=== PATIENT | female | born 1995 | race Caucasian/White ===

== ENCOUNTER 2025-07-02 20:17 | Emergency (ER) | payer MEDICARE, SELFPAY ==
--- OUTSIDE RECORDS SUMMARY | 2024-04-18 06:00 | XMS_ITS ---
Author Organization [facility] Address [address], [place] [id number] Care Team Providers Care Harp Repairer Name Role Phone JEANINE DUBOIS Primary Care Provider Allergies No Known Allergies REASON FOR VISIT Annual Social History Tobacco Use: Social History Observation Description Date Details (start date - stop date) Former Smoker NA - NA Tobacco Use: Question Answer Notes Are you a: former smoker How long has it been since you last smoked? 6-12 months Alcohol Screening: Question Answer Notes Did you have a drink contain ing alcohol in the past year? Yes How often did you have a dri nk containing alcohol in the past year? Monthly or less (1 point) How many drinks did you have on a typical day when you were drinking in the past year? 1 or 2 (0 points) Points 1 Interpretation Negative Section Notes: rare alcohol Encounters Encounter Location Date Provider Diagnosis [facility] [address], [place] [phone] 04/18/2024 JEANINE DUBOIS Plan Of Treatment Next Appt Details Provider Name:JEANINE Lynn, 10/23/2025 09:20:00 AM, [address], [place], [phone], Progress Notes * Demetrio RUEDAOB:1995 (29 yo F)Acc No.[id number]:04/18/2024 Progress Notes Patient: Kayla DELUCA Provider: Leah Dubois MD :1995 A ge:28 Y S ex:Female Date:04/18/2024 Address:[address] [place] [address] [place] [id number] Subjective: * Chief Complaints: * 1 . Annual. * Medical History: Agustina rosenberg's health exam discussed 07-15-21. * Surgical History: u reteral implantation 2011. * Family History: F ather: alive, whereabouts unknown. M other: alive, complications of Parkinson disease.?1 brother(s) , 2 sister(s) . . she is adopted. * Social History: G eneral: T obacco Use: no A re you a: f ormer smoker, H ow long has it been since you last smoked? 6 -12 months. A lcohol Screening: yes D id you have a drink containing alcohol in the past year? Y es, H ow often did you have a drink containing alcohol in the past year??Monthly or less (1 point), H ow many drinks did you have on a typical day when you were drinking in the past year? 1 or 2 (0 points), P oints 1 , I nterpretation N egative. P ain Management: yes Marina stone able to verbalize pain Y es. O pioid Risk Tool: yes A ssessment is being completed by Marina stone, S ex F emale, A re you No, F amily history of substance abuse N o, P ersonal history of substance abuse N o, A ge between 16-45 years N o - 0 points, H istory of preadolescent sexual abuse?No - 0 points, P sychological disease Y es, A DD, OCD, bipolar, schizophrenia Y es - 2 points Has no issues now with them, D epression Y es - 1 point Has some depression,?Interpretation 0 -3 Low risk. P ort or Vascular Access Device: no . D rug use: no. Recreational drug use: no. Caffeine: yes, frequency:. Marital Status: single, Camacho Paula significant other. 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 r are alcohol. * Allergies: N .K.D.A. Objective: * Vitals: Assessment: Plan: * Treatment: * Images: * Electronic signature of EFREN DUBOIS MD on 07/02/2025 at 08:00 PM CDT Sign off status: Pending * Provider: Leah Dubois MD Date: 0 04/18/2024 Generated for Eloy denney/Beto/eTransmitting on: 1 08:00 PM CDT
--- OUTSIDE RECORDS SUMMARY | 2025-02-22 11:00 | XMS_ITS ---
Author Organization [facility] Address [address], [place] [id number] Care Team Providers Care Historian Research Assistant Name Role Phone JEANINE DUBOIS Primary Care Provider [phone] Allergies Allergen (clinical drug ingredient) Drug/Non Drug Allergy documented on EMR Reaction Allergy Type Onset Date Status K5 Store Administrator and Solution (uncoded) hives Allergy Active REASON FOR VISIT severe sciatic pain mainly Rt side, pt says pain starts in lower back to upper calf recurrent for about 7 months Medications Medication SIG (Take, Route, Fr equency, Duration) Notes Start Date End Date Status predniSONE 10 mg 4 tabs for 3 days, t hen 3 tabs for 3 days, then 2 tabs for 3 days, then 1 tab for 3 days, then stop orally once a day for 12 days 12/16/2023 Not-Taking Social History Tobacco Use: Social History Observation Description Date Details (start date - stop date) Former Smoker NA - NA Tobacco Use: Question Answer Notes Are you a: former smoker How long has it been since you last smoked? 6-12 months AUDIT-C (Standard) Question Answer Notes Did you have a drink contain ing alcohol in the past year? Yes How often did you have a dri nk containing alcohol in the past year? Monthly or less (1 point) How many drinks did you have on a typical day when you were drinking in the past year? 1 or 2 drinks (0 point) How often did you have six o r more drinks on one occasion in the past year? Never (0 point) Points 1 Interpretation Negative Section Notes: rare alcohol Problems Problem Type SNOMED Code ICD Code Onset Dates Problem Status W/U Status Risk Notes Problem [id number] Sciatica, unspecified laterality (M54.30) Active confirmed Vital Signs Weight 220.6 lbs 02/22/2025 Height 66 in 02/22/2025 Blood pressure systolic 124 mm Hg 02/23/20 25 Blood pressure diastolic 80 mm Hg 025 Temperature 96.6 degrees Fahrenheit 02/23/20 25 Heart Rate 75 /min 02/22/2025 Respiratory Rate 18 /min 02/22/2025 BMI 35.6 kg/m2 02/22/2025 Oximetry 96 02/22/2025 Encounters Encounter Location Date Provider Diagnosis [facility] [address], [place] [phone] 02/22/2025 JEANINE DUBOIS Low back pain, unspecified M54.50 and Sciatica, unspecified laterality M54.30 Assessments Encounter Date Diagnosis (ICD Code) Assessment Notes Treatment Notes Treatment Clinical Notes Section Notes 02/22/2025 Low back pain, unspecified (ICD-10 - M54.50) 02/22/2025 Sciatica, unspecified laterality (ICD-10 - M54.30) Plan Of Treatment Next Appt Details Follow Up: prn, Reason: Provider Name:JEANINE Lynn, 10/23/2025 09:20:00 AM, [address] [place] [address], [place], [phone], Medications Administered Medication Instructions Date of Administration Dosage Notes triamcinolone 02/22/2025 80 mg Progress Notes * Demetrio RUEDAOB:1995 (29 yo F)Acc No.[id number]:02/22/2025 Progress Note Patient: Kayla DELUCA Provider: Leah Dubois MD :1995 A ge:29 Y S ex:Female Date:02/22/2025 Address:[address] [place] [address] [place], [id number] Subjective: * Chief Complaints: * 1 . severe sciatic pain mainly Rt side. 2. Pt says pain starts in lower back to upper calf recurrent for about 7 months. * Medical History: W shakira's health exam discussed 07-15-21. * Surgical History: [...] since you last smoked? 6 -12 months. P ain Management: yes P chase able to verbalize pain Y es pt has pain from sciatica. O pioid Risk Tool: yes A ssessment is being completed by P chase, S ex F emale, A re you N o, F amily history of substance abuse N o, P ersonal history of substance abuse N o, A ge between 16-45 years N o - 0 points, H istory of preadolescent sexual abuse N o - 0 points, P sychological disease Y es, A DD, OCD, bipolar, schizophrenia Y es - 2 points Has no issues now with them, D epression Y es - 1 point Has some depression, I nterpretation 0 -3 Low risk. P ort or Vascular Access Device: no . D rug use: no. Recreational drug use: no. Caffeine: yes, frequency:. Marital Status: single, Camacho Paula significant other. Working: no, long-term disability. D rug/Alcohol: A ESTELA-C (Standard) D id you have a drink containing alcohol in the past year? Y es,?How often did you have a drink containing alcohol in the past year? M onthly or less (1 point), H ow many drinks did you have on a typical day when you were drinking in the past year? 1 or 2 drinks (0 point), H ow often did you have six or more drinks on one occasion in the past year? N ever (0 point), P oints 1 , I nterpretation N egative. r are alcohol. * Medications: N ot-Taking predniSONE 10 mg tablet 4 tabs for 3 days, then 3 tabs for 3 days, then 2 tabs for 3 days, then 1 tab for 3 days, then stop orally once a day , Medication List reviewed and reconciled with the patient * Allergies: K 5 Store Administrator and Solution: hives. Objective: * Vitals: W t: 220.6, Wt change: 6.2 lbs, Ht: 66, BP: 124/80, Temp: 96.6, Pain Scale: 7, HR: 75, RR: 18, BMI:35.6, Oxygen sat %: 96. Assessment: * Assessment: 1. L ow back pain, unspecified - M54.50 (Primary) 2 . S ciatica, unspecified laterality - M54.30 Plan: * Treatment: * Therapeutic Injections: triamcinolone acetonide 10mg (8units) : 80 mg given by Lauren Salmon RN on left gluteus * Procedure Codes: J 3301 triamcinolone acetonide 10mg (8units), Units: 8.00 * Preventive Medicine: T he risks, benefits and alternative choices were explained in detail to patient/guardian. All questions were answered. Patient/Guardian expressed understanding and wishes to proceed. * Follow Up: p rn * Images: * Electronic signature of EFREN DUBOIS MD on 07/02/2025 at 08:00 PM CDT Sign off status: Pending * Provider: Leah Dubois MD Date: 0 02/22/2025 Generated for Eloy denney/Beto/Gopal on: 08:00 PM CDT
[2025-07-02] VITALS (16 sets, daily range): BP systolic 121–144; BP diastolic 78–89; PULSE 92–135; RESP 11–17; TEMP 37–37.6; O2SAT 91–97; BMI 28.1
--- NOTE | 2025-07-02 20:37 | XR_ITS ---
PROCEDURE INFORMATION: Exam: XR Chest Exam date and time: 07/02/2025 10:03 PM Age: 29 years old Clinical indication: Cough; Additional info: Cough x 1 week TECHNIQUE: Imaging protocol: Radiologic exam of the chest. Views: 1 view. COMPARISON: No relevant prior studies available. FINDINGS: Lungs: Unremarkable. No consolidation. Pleural spaces: Unremarkable. No pleural effusion. No pneumothorax. Heart/Mediastinum: Unremarkable. No cardiomegaly. Bones/joints: Unremarkable. IMPRESSION: No acute findings.
--- NOTE | 2025-07-02 20:40 | ED_ITS ---
Discharge Plan Disposition Patient Disposition: Home, Self-Care Condition: Good Prescriptions Prescriptions: New doxycycline hyclate 100 mg tablet 100 mg PO BID 7 Days Qty: 14 0RF Referrals Follow up/Referrals: Provider,Referral, MD [Primary Care Provider, Medical] - See instructions Activity Restrictions/Add. Instructions Additional Instructions/Restrictions: You are being prescribed antibiotics for your cough and possible urinary tract infection. Take this as prescribed. Follow-up with one of the primary care doctors provided to you. If you develop any new or worsening symptoms, such as worsening shortness of breath, difficulty breathing, chest pain, or if you become concerned for your health for any reason, return to the emergency department for evaluation. Clinical Impressions Clinical Impression: Cough Print Language Print Language: Irish Discharge ED Provider: Fadi Calles Adult HPI <LENORA Mcadams - Last Filed: 07/02/25 21:58> General Chief complaint: Upper Respiratory Infection Stated complaint: cough,ears hurt,vomiting,congestion,headache Time Seen by Provider: 07/02/25 20:34 Mode of Arrival: Ambulatory Source of Information: Patient Description of Symptoms (Recalled from ER Triage Doc. by RN): patient presents to the ED for complaints of multiple symptoms which include bilateral ear pain, fatigue, nasal congestion, vomiting. these symptoms have been going on for 1 week. History of Present Illness HPI narrative: This is a 29-year-old female presenting to the emergency department today for evaluation of runny nose and cough. Patient reports symptoms began almost 1 week ago as a runny nose and cough. She thinks she had a fever at home earlier today. Patient reports she will cough so much that she will then vomit. She took Tylenol this morning when she woke up but has not had anything since. She denies any diarrhea or vomiting. Patient reports shortness of breath with activity but not at rest. She is not on any medications including no control or hormones. No recent travel. Related Data Previous Rx's ?Medication ?Instructions ?Recorded doxycycline hyclate 100 mg tablet 100 mg PO BID 7 days #14 tabs 07/02/25 Allergies Allergy/AdvReac Type Severity Reaction Status Date / Time ethinyl estradiol (From AdvReac Other Verified 07/02/25 20:49 Álvaro) norelgestromin (From Xulane) AdvReac Other Verified 07/02/25 20:49 PFSH <LENORA Mcadams - Last Filed: 07/02/25 21:58> [facility] Disclaimer: The information contained in this section may have been updated after the patient was seen, as this information can be updated by other users. Social History (Updated 07/02/25 @ 21:58 by LENORA Mcadams) Smoking Status: Never smoker alcohol intake: never current occupational status: other Travel in the last 8 weeks?: None Have you lived/traveled outside US in past 30 days?: No Contact w/someone who lives/traveled outside US past 30 days?: No Exposure to someone with infectious disease in past 14 days?: No Do you have a fever (greater than 100.4 F or 38 C)?: Yes Have you tested positive for COVID-19?: No Exposed to someone with COVID-19 in past 14 days?: No Do you have a sore throat?: Yes Do you have a cough?: Yes Do you have any weakness?: Yes Do you have any diarrhea?: No Are you experiencing any unusual bleeding?: No Do you have any muscle aches/pain?: No Do you have any abdominal pain?: No Are you experiencing loss of taste or smell?: No <LENORA Mcadams - Last Filed: 07/02/25 21:58> ROS Obtained: Yes Systems reviewed as appropriate & no additional complaints except as documented Physical Exam <LENORA Mcadams - Last Filed: 07/02/25 21:58> General General appearance: alert and in no apparent distress Head Head exam: atraumatic and normocephalic Expanded ENT Exam Comment: Clear rhinorrhea present. Neck Neck exam: Present full ROM Respiratory Respiratory exam: Present normal lung sounds bilaterally; Absent respiratory distress Cardiovascular Cardiovascular exam: Present normal rhythm and tachycardia Abdominal Exam Abdominal exam: Present soft; Absent distention or tenderness Neurological Exam Neurological exam: Present alert and oriented X3 Medical Decision Making <LENORA Mcadams - Last Filed: 07/02/25 21:58> Medical Records Screening: Per USPSTF and CDC recommendations, given the prevalence of disease in our region, it is our hospital?s policy to screen for HIV and viral Hepatitis for all patients aged 18 and over and those with ongoing risk factors. Fede Inquiry Pt receiving controlled substance: No Vital Signs: 07/02/25 20:20 07/02/25 20:42 07/02/25 20:45 Temperature 99.6 F Temperature Source Temporal Artery Scan Pulse Rate 135 H 132 H Pulse Rate [Right Radial] 132 H Respiratory Rate 16 17 17 Blood Pressure Blood Pressure [Right Arm] 134/89 Blood Pressure Mean Blood Pressure Mean [Right Arm] 104 Blood Pressure Source [Right Arm] Automatic Cuff Blood Pressure Position [Right Arm] Sitting 02 Sat by Pulse Oximetry 91 L 95 95 Oxygen Delivery Method Room Air 07/02/25 20:52 07/02/25 21:00 07/02/25 21:06 Temperature Temperature Source Pulse Rate 123 H Pulse Rate [Right Radial] Respiratory Rate 16 Blood Pressure 121/78 Blood Pressure [Right Arm] Blood Pressure Mean 92 Blood Pressure Mean [Right Arm] Blood Pressure Source [Right Arm] Blood Pressure Position [Right Arm] 02 Sat by Pulse Oximetry 95 94 L Oxygen Delivery Method Room Air 07/02/25 21:15 07/02/25 21:30 07/02/25 21:30 Temperature Temperature Source Pulse Rate 124 H 119 H Pulse Rate [Right Radial] Respiratory Rate 14 16 Blood Pressure 124/80 Blood Pressure [Right Arm] Blood Pressure Mean 96 Blood Pressure Mean [Right Arm] Blood Pressure Source [Right Arm] Blood Pressure Position [Right Arm] 02 Sat by Pulse Oximetry 96 95 Oxygen Delivery Method 07/02/25 21:45 07/02/25 22:00 07/02/25 22:00 Temperature Temperature Source Pulse Rate 115 H 111 H Pulse Rate [Right Radial] Respiratory Rate 11 L 14 Blood Pressure 128/86 Blood Pressure [Right Arm] Blood Pressure Mean 100 Blood Pressure Mean [Right Arm] Blood Pressure Source [Right Arm] Blood Pressure Position [Right Arm] 02 Sat by Pulse Oximetry 96 97 Oxygen Delivery Method 07/02/25 22:15 07/02/25 22:30 07/02/25 22:30 Temperature Temperature Source Pulse Rate 112 H 104 H Pulse Rate [Right Radial] Respiratory Rate 17 16 Blood Pressure 144/89 H Blood Pressure [Right Arm] Blood Pressure Mean 108 Blood Pressure Mean [Right Arm] Blood Pressure Source [Right Arm] Blood Pressure Position [Right Arm] 02 Sat by Pulse Oximetry 96 94 L Oxygen Delivery Method 07/02/25 22:45 07/02/25 23:00 07/02/25 23:00 Temperature Temperature Source Pulse Rate 107 H 101 H Pulse Rate [Right Radial] Respiratory Rate 13 13 Blood Pressure 122/87 Blood Pressure [Right Arm] Blood Pressure Mean 104 Blood Pressure Mean [Right Arm] Blood Pressure Source [Right Arm] Blood Pressure Position [Right Arm] 02 Sat by Pulse Oximetry 95 95 Oxygen Delivery Method 07/02/25 23:15 07/02/25 23:30 Temperature 98.6 F Temperature Source Pulse Rate 92 H 98 H Pulse Rate [Right Radial] Respiratory Rate 15 15 Blood Pressure 122/87 Blood Pressure [Right Arm] Blood Pressure Mean Blood Pressure Mean [Right Arm] Blood Pressure Source [Right Arm] Blood Pressure Position [Right Arm] 02 Sat by Pulse Oximetry 96 Oxygen Delivery Method Room Air Lab Data Lab Results 07/02/25 20:30: SARS-CoV-2 (PCR) Not detected, Influenza A Untype (PCR) Not detected, Influenza Type B (PCR) Not detected 07/02/25 20:46: WBC 9.5, RBC 5.00, Hgb 14.7, Hct 44.2, MCV 88.4, MCH 29.4, MCHC 33.3, RDW 12.2, Plt Count 250, MPV 11.0 H, Neut % (Auto) 65.5, Lymph % (Auto) 13.7, [place] % (Auto) 16.2 H, Eos % (Auto) 3.8, Baso % (Auto) 0.5, Neut # (Auto) 6.2, Lymph # (Auto) 1.3, [place] # (Auto) 1.5 H, Eos # (Auto) 0.4, Baso # (Auto) 0.1, D-Dimer 0.59 H, Sodium 139, Potassium 3.7, Chloride 102, Carbon Dioxide 25, Anion Gap 15.7 H, BUN 7, Creatinine 0.80, Estimated Creat Clear 133, Estimated GFR 84, Est GFR ( Amer) 102, Glucose 82, Calcium 9.6, Total Bilirubin 0.9, AST 23, ALT 21, Alkaline Phosphatase 102, Total Protein 7.6, Albumin 4.4, Globulin 3.2, Albumin/Globulin Ratio 1.4, Serum HCG, Qual Negative 07/02/25 22:12: Urine Color Yellow, Urine Appearance Sl cloudy, Urine pH 5.5, Ur Specific [place] >= 1.030, Urine Protein Trace, Urine Glucose (UA) Negative, Urine Ketones 1+, Urine Blood 2+ A, Urine Nitrate Positive A, Urine Bilirubin Negative, Urine Urobilinogen >=8.0, Ur Leukocyte Esterase Trace, Urine RBC 10- 20, Urine WBC 20-50, Ur Squamous Epith Cells Tntc, Urine Bacteria 4+ 07/02/25 20:46 07/02/25 20:46 Orders (Tests/Meds): ED MEDICATIONS Discontinued Medications Generic Name Dose Route Start Last Admin Trade Name Maggie PRN Reason Stop Dose Admin Acetaminophen 500 mg 07/02/25 20:39 07/02/25 21:01 Acetaminophen 500mg Tab PO 07/02/25 20:40 500 mg ONCE ONE Administration Doxycycline Hyclate 100 mg 07/02/25 23:05 07/02/25 23:25 Doxycycline Hycl 100 Mg Tablet PO 07/02/25 23:06 100 mg ONCE ONE Administration Ibuprofen 600 mg 07/02/25 20:39 07/02/25 22:15 Ibuprofen 600 Mg Tablet PO 07/02/25 20:40 600 mg ONCE ONE Administration Sodium Chloride 1,000 ml 07/02/25 20:37 07/02/25 21:00 Sodium Chloride 0.9% 500ml Bag IV 07/02/25 20:38 1,000 ml ONCE ONE Administration ORDERS Category Date Time Status CXR --portable [XR chest portable] Stat Exams 07/02/25 20:37 Completed CBC w/Auto Diff [Complete Blood Count Auto Diff] Stat Lab 07/02/25 20:46 Completed CMP [Comprehensive Metabolic Panel] Stat Lab 07/02/25 20:46 Completed D-Dimer Stat Lab 07/02/25 20:46 Completed HCG Qualitative, Serum Stat Lab 07/02/25 20:46 Completed Rapid PCR Covid and Flu A/B Stat Lab 07/02/25 20:30 Completed Urinalysis and Microscopic Stat Lab 07/02/25 22:12 Completed Blood Culture Stat Micro 07/02/25 20:40 Received Urine Culture Stat Micro 07/02/25 22:12 Received Medical Decision Narrative: In summary, this is a 29-year-old female presenting to the emergency department today for evaluation of runny nose, cough, and fever. Symptoms first began about 1 week ago with runny nose and cough. Patient felt she had a fever today. She took Tylenol earlier this morning. Patient reports some shortness of breath with exertion but none at rest. She is not on any oral contraceptive pills. On exam patient is well-appearing and in no acute distress. She is tachycardic. She is afebrile. Respiratory rate and effort are normal and nonlabored. Patient is able to speak in full sentences. The lungs are clear to auscultation bilaterally without adventitious sounds. There are no decreased breath sounds or wheezing. Oropharynx clear. Uvula midline. No tonsillar exudates. Bilateral TMs are normal. There is cerumen in the canals but they are not fully impacted. There is no leg swelling. Abdomen is soft, nondistended, nontender to palpation. Differential diagnoses include but are not limited to upper respiratory infection, COVID, flu, sinusitis, pneumonia, sepsis, pulmonary embolism, among others. Will obtain CBC, CMP, D-dimer, blood cultures, urinalysis, hCG. Will obtain chest x-ray. CBC without leukocytosis. CMP nonactionable. COVID and flu nondetected. We are awaiting hCG so we can obtain a chest x-ray. Mild elevation in D-dimer. We will evaluate chest x-ray, then make decision on if the patient requires a CT PE scan. Tachycardia has improved with fluids. HR now ranging 103-110 bpm. 10:00PM As it is time for shift change, Dr. Calles will continue to follow the patient. <Fadi Calles MD - Last Filed: 07/03/25 02:01> Vital Signs: 07/02/25 20:20 07/02/25 20:42 07/02/25 20:45 Temperature 99.6 F Temperature Source Temporal Artery Scan Pulse Rate 135 H 132 H Pulse Rate [Right Radial] 132 H Respiratory Rate 16 17 17 Blood Pressure Blood Pressure [Right Arm] 134/89 Blood Pressure Mean Blood Pressure Mean [Right Arm] 104 Blood Pressure Source [Right Arm] Automatic Cuff Blood Pressure Position [Right Arm] Sitting 02 Sat by Pulse Oximetry 91 L 95 95 Oxygen Delivery Method Room Air 07/02/25 20:52 07/02/25 21:00 07/02/25 21:06 Temperature Temperature Source Pulse Rate 123 H Pulse Rate [Right Radial] Respiratory Rate 16 Blood Pressure 121/78 Blood Pressure [Right Arm] Blood Pressure Mean 92 Blood Pressure Mean [Right Arm] Blood Pressure Source [Right Arm] Blood Pressure Position [Right Arm] 02 Sat by Pulse Oximetry 95 94 L Oxygen Delivery Method Room Air 07/02/25 21:15 07/02/25 21:30 07/02/25 21:30 Temperature Temperature Source Pulse Rate 124 H 119 H Pulse Rate [Right Radial] Respiratory Rate 14 16 Blood Pressure 124/80 Blood Pressure [Right Arm] Blood Pressure Mean 96 Blood Pressure Mean [Right Arm] Blood Pressure Source [Right Arm] Blood Pressure Position [Right Arm] 02 Sat by Pulse Oximetry 96 95 Oxygen Delivery Method 07/02/25 21:45 07/02/25 22:00 07/02/25 22:00 Temperature Temperature Source Pulse Rate 115 H 111 H Pulse Rate [Right Radial] Respiratory Rate 11 L 14 Blood Pressure 128/86 Blood Pressure [Right Arm] Blood Pressure Mean 100 Blood Pressure Mean [Right Arm] Blood Pressure Source [Right Arm] Blood Pressure Position [Right Arm] 02 Sat by Pulse Oximetry 96 97 Oxygen Delivery Method 07/02/25 22:15 07/02/25 22:30 07/02/25 22:30 Temperature Temperature Source Pulse Rate 112 H 104 H Pulse Rate [Right Radial] Respiratory Rate 17 16 Blood Pressure 144/89 H Blood Pressure [Right Arm] Blood Pressure Mean 108 Blood Pressure Mean [Right Arm] Blood Pressure Source [Right Arm] Blood Pressure Position [Right Arm] 02 Sat by Pulse Oximetry 96 94 L Oxygen Delivery Method 07/02/25 22:45 07/02/25 23:00 07/02/25 23:00 Temperature Temperature Source Pulse Rate 107 H 101 H Pulse Rate [Right Radial] Respiratory Rate 13 13 Blood Pressure 122/87 Blood Pressure [Right Arm] Blood Pressure Mean 104 Blood Pressure Mean [Right Arm] Blood Pressure Source [Right Arm] Blood Pressure Position [Right Arm] 02 Sat by Pulse Oximetry 95 95 Oxygen Delivery Method 07/02/25 23:15 07/02/25 23:30 Temperature 98.6 F Temperature Source Pulse Rate 92 H 98 H Pulse Rate [Right Radial] Respiratory Rate 15 15 Blood Pressure 122/87 Blood Pressure [Right Arm] Blood Pressure Mean Blood Pressure Mean [Right Arm] Blood Pressure Source [Right Arm] Blood Pressure Position [Right Arm] 02 Sat by Pulse Oximetry 96 Oxygen Delivery Method Room Air Lab Data Lab Results 07/02/25 20:30: SARS-CoV-2 (PCR) Not detected, Influenza A Untype (PCR) Not detected, Influenza Type B (PCR) Not detected 07/02/25 20:46: WBC 9.5, RBC 5.00, Hgb 14.7, Hct 44.2, MCV 88.4, MCH 29.4, MCHC 33.3, RDW 12.2, Plt Count 250, MPV 11.0 H, Neut % (Auto) 65.5, Lymph % (Auto) 13.7, [place] % (Auto) 16.2 H, Eos % (Auto) 3.8, Baso % (Auto) 0.5, Neut # (Auto) 6.2, Lymph # (Auto) 1.3, [place] # (Auto) 1.5 H, Eos # (Auto) 0.4, Baso # (Auto) 0.1, D-Dimer 0.59 H, Sodium 139, Potassium 3.7, Chloride 102, Carbon Dioxide 25, Anion Gap 15.7 H, BUN 7, Creatinine 0.80, Estimated Creat Clear 133, Estimated GFR 84, Est GFR ( Amer) 102, Glucose 82, Calcium 9.6, Total Bilirubin 0.9, AST 23, ALT 21, Alkaline Phosphatase 102, Total Protein 7.6, Albumin 4.4, Globulin 3.2, Albumin/Globulin Ratio 1.4, Serum HCG, Qual Negative 07/02/25 22:12: Urine Color Yellow, Urine Appearance Sl cloudy, Urine pH 5.5, Ur Specific [place] >= 1.030, Urine Protein Trace, Urine Glucose (UA) Negative, Urine Ketones 1+, Urine Blood 2+ A, Urine Nitrate Positive A, Urine Bilirubin Negative, Urine Urobilinogen >=8.0, Ur Leukocyte Esterase Trace, Urine RBC 10- 20, Urine WBC 20-50, Ur Squamous Epith Cells Tntc, Urine Bacteria 4+ Orders (Tests/Meds): ED MEDICATIONS Discontinued Medications Generic Name Dose Route Start Last Admin Trade Name Chadq PRN Reason Stop Dose Admin Acetaminophen 500 mg 07/02/25 20:39 07/02/25 21:01 Acetaminophen 500mg Tab PO 07/02/25 20:40 500 mg ONCE ONE Administration Doxycycline Hyclate 100 mg 07/02/25 23:05 07/02/25 23:25 Doxycycline Hycl 100 Mg Tablet PO 07/02/25 23:06 100 mg ONCE ONE Administration Ibuprofen 600 mg 07/02/25 20:39 07/02/25 22:15 Ibuprofen 600 Mg Tablet PO 07/02/25 20:40 600 mg ONCE ONE Administration Sodium Chloride 1,000 ml 07/02/25 20:37 07/02/25 21:00 Sodium Chloride 0.9% 500ml Bag IV 07/02/25 20:38 1,000 ml ONCE ONE Administration ORDERS Category Date Time Status CXR --portable [XR chest portable] Stat Exams 07/02/25 20:37 Completed CBC w/Auto Diff [Complete Blood Count Auto Diff] Stat Lab 07/02/25 20:46 Completed CMP [Comprehensive Metabolic Panel] Stat Lab 07/02/25 20:46 Completed D-Dimer Stat Lab 07/02/25 20:46 Completed HCG Qualitative, Serum Stat Lab 07/02/25 20:46 Completed Rapid PCR Covid and Flu A/B Stat Lab 07/02/25 20:30 Completed Urinalysis and Microscopic Stat Lab 07/02/25 22:12 Completed Blood Culture Stat Micro 07/02/25 20:40 Received Urine Culture Stat Micro 07/02/25 22:12 Received Medical Decision Narrative: In summary, this is a 29-year-old female presenting to the emergency department today for evaluation of runny nose, cough, and fever. Symptoms first began about 1 week ago with runny nose and cough. Patient felt she had a fever today. She took Tylenol earlier this morning. Patient reports some shortness of breath with exertion but none at rest. She is not on any oral contraceptive pills. On exam patient is well-appearing and in no acute distress. She is tachycardic. She is afebrile. Respiratory rate and effort are normal and nonlabored. Patient is able to speak in full sentences. The lungs are clear to auscultation bilaterally without adventitious sounds. There are no decreased breath sounds or wheezing. Oropharynx clear. Uvula midline. No tonsillar exudates. Bilateral TMs are normal. There is cerumen in the canals but they are not fully impacted. There is no leg swelling. Abdomen is soft, nondistended, nontender to palpation. Differential diagnoses include but are not limited to upper respiratory infection, COVID, flu, sinusitis, pneumonia, sepsis, pulmonary embolism, among others. Will obtain CBC, CMP, D-dimer, blood cultures, urinalysis, hCG. Will obtain chest x-ray. CBC without leukocytosis. CMP nonactionable. COVID and flu nondetected. We are awaiting hCG so we can obtain a chest x-ray. Mild elevation in D-dimer. We will evaluate chest x-ray, then make decision on if the patient requires a CT PE scan. Tachycardia has improved with fluids. HR now ranging 103-110 bpm. 10:00PM As it is time for shift change, Dr. Calles will continue to follow the patient. Fadi Calles MD: I was consulted by the DOMINGUEZ, and we discussed the complexity of the problems being addressed. I approve the treatment and management plan for this patient's care in the emergency department, thus performing a substantive portion of the medical decision making. Chest x-ray was interpreted by me personally. There is no focal consolidation, however patient may have some slight mild perihilar thickening. With the patient's cough and nasal congestion, I have low suspicion for pulmonary embolism and do feel that she may have an atypical pneumonia and is negative per YEARS criteria for PE. Her urine has significant mount of squamous epithelial cells, however there are 20-50 white blood cells as well as nitrite positive and 4+ bacteria. This could represent a urinary tract infection. Given these findings, will give patient a dose of 100 mg doxycycline here in the emergency department and send with a 7- day course. Patient's heart rate had improved to the 90s. will also provide her list of primary care doctors to follow-up with. Patient was given strict return precautions. All questions were answered. She demonstrated understanding and was in agreement this plan. She was then discharged from the emergency department in stable condition. Critical Care <LENORA Mcadams - Last Filed: 07/02/25 21:58> Critical Care Time Critical Care Time: No
[2025-07-02 20:43] LABS: Coronavirus 19, PCR Not Detected (NotDetected); Influenza A, PCR Not Detected (NotDetected); Influenza B, PCR Not Detected (NotDetected)
[2025-07-02 20:53] LABS: Hematocrit 44.2 % (37.0-47.0); Hemoglobin 14.7 g/dL (12.2-16.2); Immature Granulocytes % 0.3 %; Mean Corpuscular HGB Conc 33.3 g/dL (31.8-35.4); Mean Corpuscular Hemoglobin 29.4 pg (27.0-31.2); Mean Corpuscular Volume 88.4 fl (81-99); Nucleated Red Blood Cells % 0 %; Platelet Count 250 K/mm3 (142-424); Red Blood Count 5.00 M/mm3 (4.20-5.40); Red Cell Distribution Width-SD 40.1 fL; White Blood Count 9.5 K/mm3 (4.8-10.8)
[2025-07-02] MEDS: SODIUM CHLORIDE 0.9% 500ML BAG 1000 ML IV (21:00)
--- OUTSIDE RECORDS SUMMARY | 2025-07-02 21:00 | XMS_ITS | Patient Health Record ---
Author Organization [facility] Address [address], [place] [id number] Care Team Providers Care Solutions Architect Consultant Name Role Phone JEANINE DUBOIS Primary Care Provider [phone] Allergies Allergen (clinical drug ingredient) Drug/Non Drug Allergy documented on EMR Reaction Allergy Type Onset Date Status K5 Grated Cheese Maker and Solution (uncoded) hives Allergy Active Reason For Referral No Information Medications Medication SIG (Take, Route, Fr equency, [...] been since you last smoked? 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 Rare alcohol. Quit smoking in 2023. 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 Problem 49700838 Sciatica, unspecified laterality (M54.30) Active confirmed Vital Signs Heart Rate 75 /min 02/22/2025 Temperature 96.6 degrees Fahrenheit 02/22/2025 Respiratory Rate 18 /min 02/22/2025 Blood pressure diastolic 80 mm Hg 02/22/2025 Oximetry 96 02/22/2025 Height 66 in 02/22/2025 Blood pressure systolic 124 mm Hg 02/22/2025 Weight 220.6 lbs 02/22/2025 BMI 35.6 kg/m2 02/22/2025 Encounters Encounter Location Date Provider Diagnosis [facility] [address], [place] [id number] 04/16/2025 JEANINE DUBOIS [facility] [address], [place] [id number] 10/23/2024 JEANINE KROCK Annual physical exam Z00.00 [facility] [address], [place] [id number] 02/22/2025 JEANINE SILVINO Low back pain, unspecified M54.50 and Sciatica, unspecified laterality M54.30 Assessments Encounter Date Diagnosis (ICD Code) Assessment Notes Treatment Notes Treatment Clinical Notes Section Notes 10/23/2024 Annual physical exam (ICD-10 - Z00.00) Reviewed patient specific screening schedule. Discussed healthy lifestyle including seat belts, sunscreen, regular exercise, healthy diet, not smoking. Recommended woman's health exam. Discussed screening labs and she wished to defer that at the current time. JESSICA/elizabeth d 04/16/25 0851 t 04/17/25 1352 02/22/2025 Sciatica, unspecified laterality (ICD-10 - M54.30) 02/22/2025 Low back pain, unspecified (ICD-10 - M54.50) Plan Of Treatment Next Appt Details Provider Name:JEANINE Lynn, 10/23/2025 09:20:00 AM, [address], [place], [id number], Medications Administered Medication Instructions Date of Administration Dosage Notes DEPO-Medrol 08/02/2022 80 mg triamcinolone 02/22/2025 80 mg Medical (General) History Medical History History ICD Code woman's health exam discussed 10-23-24 Surgical History Surgery Date(Month/Year) ureteral implantation 2011
[2025-07-02] MEDS: ACETAMINOPHEN 500MG TAB 500 MG PO (21:01)
[2025-07-02 21:05] LABS: Alanine Aminotransferase 21 U/L (12-78); Albumin Level 4.4 g/dl (3.5-5.0); Albumin/Globulin Ratio 1.4 (1.1-1.8); Alkaline Phosphatase 102 U/L (38-126); Anion Gap 15.7 mEq/L (5-15); Aspartate Amino Transferase 23 U/L (14-36); Bilirubin,Total 0.9 mg/dl (0.2-1.3); Blood Urea Nitrogen 7 mg/dl (7-17); Calcium 9.6 mg/dl (8.4-10.2); Carbon Dioxide 25 mmol/L (22.0-30.0); Chloride 102 mmol/L (98-107); Creatinine Clearance Estimated 133 mL/min (50-200); Creatinine,Serum 0.80 mg/dl (0.52-1.04); Estimated Glomerular Filt Rate 84 ml/min (>60); GFR (African American) 102 ML/MIN (>60); Globulin 3.2 g/dL (1.3-3.2); Glucose 82 mg/dl (74-100); Potassium 3.7 mmoL/L (3.5-5.1); Sodium 139 mmol/L (136-145); Total Protein,Serum 7.6 g/dl (6.3-8.2)
[2025-07-02 21:15] LABS: D-Dimer 0.59 ug/mL (0.0-0.5)
[2025-07-02 21:58] LABS: HCG Qualitative, Serum Negative (Negative)
--- NOTE | 2025-07-02 22:07 | PC.NURSE ---
2 500ml bags of sodium chloride started at 2100. Infusion ended at 1999
[2025-07-02] MEDS: IBUPROFEN 600 MG TABLET PO (22:15)
[2025-07-02 22:16] LABS: Microscopic, Urine URINE MICROSCOPIC (MICROSCOPIC)
[2025-07-02 22:25] LABS: Color,Urine YELLOW (Yellow); Glucose,Urine (UA) Negative (Negative); Ketones,Urine 1+ (Negative); Leukocyte Esterase,Urine TRACE (Negative); PH,Urine 5.5 (5.0-8.5); Protein,Urine TRACE (Negative); Specific Gravity, Urine >= 1.030 (1.005-1.030); Urobilinogen,Urine >=8.0 EU/dl (0.2)
[2025-07-02 22:29] LABS: Bilirubin,Urine Negative (Negative)
[2025-07-02 22:47] LABS: Bacteria,Urine 4+ /lpf; Squamous Epithelial Cell,Urine TNTC #/hpf (0-5); WBC,Urine 20-50 #/hpf (0-3)
[2025-07-02] MEDS: DOXYCYCLINE HYCL 100 MG TABLET PO (23:25)
--- NOTE | 2025-07-06 15:40 | PC.NURSE ---
Final urine culture discussed with . He called in bactrim to the pts pharmacy and wants her to stop the doxycycline. I attempted to call the pt. I am unable to reach her at this time.
--- NOTE | 2025-07-07 06:20 | PC.NURSE ---
PT notified of change of antibiotic recommended by physician. Informed to stop the Doxycycline and diamond picker the Bactrim at her pharmacy Pt verbalized an understanding
== END 2025-07-02 23:31 | disposition home or self-care (01) ==
PROVIDERS: Physician Assistant; Emergency Provider Student in an Organized Health Care Education/Training Program
DX: N39.0 Urinary tract infection, site not specified (principal); R00.0 Tachycardia, unspecified; R09.81 Nasal congestion; R05.1 Acute cough
CPT/HCPCS: 71045; 80053; 81001; 84703; 85025; 85378; 87040; 87086; 87088; 87186; 87636; 99284; 99285; J7040